=== PATIENT | male | born 1980 | race Caucasian/White ===

== ENCOUNTER 2023-03-27 01:21 | Observation (INO) ==
[2023-03-27] MEDS ORDERED: Lactated Ringers 1000 ml BAG 1,000 ML IV ONE (01:33)
[2023-03-27] MEDS ORDERED: Acetaminophen IV 1 GM/100ML 1,000 MG/100 ML BAG IV ONE ×2 (01:33→08:09)
[2023-03-27] MEDS ORDERED: Zosyn per Pharmacy NOTE FOLLOW UP SCH (02:00)
[2023-03-27] MEDS ORDERED: Zosyn 3.375 GM IV - ED ONCE IV ONE (02:30)
[2023-03-27] MEDS ORDERED: Morphine 4 MG/ML VIAL (1 ml) IV ONE ×2 (05:44→05:53)
[2023-03-27] MEDS ORDERED: Ondansetron 4 mg VIAL 2 MG/ML 2 ml VIAL IV ONE (06:04)
[2023-03-27] MEDS ORDERED: ZOSYN 3.375 GM Q8H per EXTENDED INFUSION IV SCH (07:30)
[2023-03-27] MEDS ORDERED: Metoprolol Tartrate 5 mg VIAL 5 ml VIAL (1 mg/ml) IV ONE (08:38)
[2023-03-27] MEDS ORDERED: Midazolam 5 mg/5 ml VIAL 1 mg/ml 5 ml VIAL (5 mg) ONE (11:14)
[2023-03-27] MEDS ORDERED: Propofol 10 MG/ML 20 ML BTL ONE (11:14)
[2023-03-27] MEDS ORDERED: fentaNYL 100 mcg/2 ml 50 MCG/ML VIAL ONE (11:14)
[2023-03-27] MEDS ORDERED: Dexamethasone IV 4 MG/ML VIAL 1 ml VIAL ONE (11:14)
[2023-03-27] MEDS ORDERED: Rocuronium 50 mg VIAL 10 mg/ml 5 ml VIAL (50 mg) ONE ×2 (11:14→12:20)
[2023-03-27] MEDS ORDERED: Ondansetron 4 mg VIAL 2 MG/ML 2 ml VIAL ONE (11:14)
[2023-03-27] MEDS ORDERED: Lidocaine 2% PF 5 ML VIAL ONE (11:14)
[2023-03-27] MEDS ORDERED: Bupivacaine 0.25% w/EPI 10 ML SDV ONE (11:18)
[2023-03-27] MEDS ORDERED: Phenylephrine 40 mcg/mL 10mL (400mcg) SYRINGE ONE (12:13)
[2023-03-27] MEDS ORDERED: fentaNYL 100 mcg/2 ml 50 MCG/ML VIAL IV PRN (12:41)
[2023-03-27] MEDS ORDERED: Naloxone 0.4 mg VIAL 0.4 mg/ml 1 ml VIAL IV PRN (12:41)
[2023-03-27] MEDS ORDERED: HYDROmorphone 1 MG/1 ML SYRINGE IV PRN (12:41)
[2023-03-27] MEDS ORDERED: Sugammadex 500 MG/5 ML 5 ml VIAL IV PUSH ONE (13:03)
[2023-03-27] MEDS ORDERED: Ondansetron 4 mg VIAL 2 MG/ML 2 ml VIAL IV PRN (13:33)
[2023-03-27] MEDS ORDERED: HYDROmorphone 1 MG/1 ML SYRINGE ONE (14:10)
[2023-03-27] MEDS: oxyCODONE/Acetamin 5/325 mg TAB PO PRN ×2 (16:11→22:01)
[2023-03-27] MEDS: Piperacillin/Tazobactam VIAL 3.375 GM in NS 0.9% 100 ml BAG 100 ML IVPB SCH (17:44)
[2023-03-28] MEDS: Piperacillin/Tazobactam VIAL 3.375 GM in NS 0.9% 100 ml BAG 100 ML IVPB SCH ×2 (02:35→09:01)
[2023-03-28] MEDS: oxyCODONE/Acetamin 5/325 mg TAB PO PRN (02:44)
[2023-03-28] MEDS ORDERED: Heparin 5000 UNITS/ML 1 mL VIAL SUBCUT SCH (07:00)
[2023-03-28 10:12] VITALS: BP 180/113
== END 2023-03-28 12:15 | disposition home or self-care (01) ==
LOC: ED 01:21 → OR 09:28 → SSU 09:28 → INTOOBSV 13:33 → OBSVTOIN 15:05
PROVIDERS: ADMIT Surgery; ATTEND Surgery